=== PATIENT | female | born 1980 | race Two or more races ===

== ENCOUNTER 2022-03-21 15:34 | Emergency (ER) | payer MEDICAID, OTHER ==
[~2022-03-21] VITALS: Ht 182.9 cm; Wt 113.4 kg
--- NOTE | 2022-03-21 16:10 | NUR ---
TO ER BED 14, NAUSEA AND VOMITING SINCE THIS MORNING,HAD BEEN DRINKING ALCOHOL LAST NIGHT AND WENT TO HAVE [place] FOOD, AAOX3, BREATHING EVEN AND NON LABORED, AWAITING MD MARTINEZ
[2022-03-21] MEDS ORDERED: ONDANSETRON HCL/PF - ER 4 MG/2 ML VIAL IV ONE ×2 (16:30→17:30)
[2022-03-21] MEDS ORDERED: IV NS 0.9% 1,000 ML IV ONE ×2 (16:30→17:30)
[2022-03-21] MEDS ORDERED: ONDANSETRON HCL/PF 4 MG/2 ML VIAL ONE ×2 (16:43→17:35)
--- NOTE | 2022-03-21 16:45 | NUR ---
SALINE LOCK ESTABLISHED, BLOOD DRAWN, AND SENT TO LAB
--- NOTE | 2022-03-21 16:56 | NUR ---
URINE COLLECTED AND SENT TO LAB
[2022-03-21 17:09] LABS: BASOPHILS % (AUTO) 1.2 % (0.0-2.0); EOSINOPHILS % (AUTO) 5.9 % (0.0-6.0); HEMATOCRIT 36 % (33-45); HEMOGLOBIN 11.8 g/dL (11.5-14.8); LYMPHOCYTES # (AUTO) 0.8 K/uL (0.8-4.8); LYMPHOCYTES % (AUTO) 28.8 % (20.0-44.0); MEAN CORPUSCULAR HGB CONC 33 g/dl (31.0-36.0); MEAN CORPUSCULAR VOLUME 81 fL (82-100); MONOCYTES # (AUTO) 0.3 K/uL (0.1-1.30); MONOCYTES % (AUTO) 10.7 % (2.0-12.0); NEUTROPHILS # (AUTO) 1.6 K/uL (1.8-8.9); NEUTROPHILS % (AUTO) 53.4 % (43.0-81.0); PLATELET COUNT (AUTO) 313 K/uL (150-450); RED BLOOD CELL COUNT(AUTO) 4.46 MIL/uL (4.0-5.2); WHITE BLOOD COUNT (AUTO) 2.9 K/uL (4.3-11.0)
[2022-03-21 17:19] LABS: BILIRUBIN,URINE NEGATIVE (NEGATIVE); COLOR,URINE YELLOW (YELLOW); LEUKOCYTE ESTERASE ,URINE NEGATIVE (NEGATIVE); NITRITE, URINE NEGATIVE (NEGATIVE); PH,URINE 8.5 (5.0-8.0); PROTEIN,URINE TRACE mg/dl (NEGATIVE); UGLUCOSE NEGATIVE (NEGATIVE); UROBILINOGEN,URINE 0.2 EU/dL (0.2)
[2022-03-21] MEDS ORDERED: FAMOTIDINE/PF INJ 20 MG/2 ML VIAL IV ONE ×2 (17:30→17:36)
[2022-03-21 17:51] LABS: BACTERIA,URINE RARE /HPF (None Seen); RBC,URINE 0-2 /HPF (0-2); WBC,URINE 0-2 /HPF (0-3)
[2022-03-21 18:05] LABS: ALBUMIN 3.6 g/dL (3.4-5.0); BILIRUBIN,DIRECT 0.1 mg/dL (0.0-0.2); BILIRUBIN,TOTAL 0.2 mg/dL (0.2-1.0); CALCIUM, SERUM 8.9 mg/dL (8.5-10.1); CREATININE 0.9 mg/dL (0.6-1.3); POTASSIUM 3.7 mmol/L (3.5-5.1); TOTAL PROTEIN, SERUM 8.1 g/dL (6.4-8.2)
[2022-03-21 18:57] LABS: EOSINOPHILS % (MANUAL) 6 % (0-4); LYMPHOCYTES % (MANUAL) 34 % (16-48); MONOCYTES % (MANUAL) 5 % (0-11.0); NEUTROPHILS % (MANUAL) 55 (42-76)
[2022-03-21] MEDS ORDERED: ONDA4TAB5 PO (19:40)
[2022-03-21] MEDS ORDERED: FAMO-131 PO (19:40)
[2022-03-21 19:50] VITALS: BP 123/81
--- NOTE | 2022-03-21 19:50 | NUR ---
Patient discharged to home in stable condition. Written and verbal after care instructions given. Patient verbalizes understanding of instruction.
== END 2022-03-21 19:53 | disposition home or self-care (01) ==
LOC: ER 15:45
DX: R11.2 Nausea with vomiting, unspecified (principal); Z60.2 Problems related to living alone; Z79.899 Other long term (current) drug therapy
CPT/HCPCS: 36415; 80048; 80076; 81001; 83690; 84703; 85007; 85025; 96361; 96374; 96375; 96376; 99284; J2405 ×4; J3490; J7030 ×2

== ENCOUNTER 2022-08-25 01:27 | Emergency (ER) | payer OTHER ==
[~2022-08-25] VITALS: Ht 182.9 cm; Wt 116.1 kg
[~2022-08-25 01:27] MED LIST: FAMO-131 PO; ONDA4TAB5 PO
--- NOTE | 2022-08-25 02:01 | NUR ---
CALLED TO TRIAGE NO ANSWER
--- NOTE | 2022-08-25 02:25 | NUR ---
PATIENT BIBSELF C/O DARK BROWN SPOTTING & CRAMPING STARTED THURSDAY. 13 WEEKS . PATIENT IS A/OX 4, RR EVEN AND UNLABORED NOT SOB NOTED. VSS. WILL CONTINUE TO MONITOR.
--- NOTE | 2022-08-25 02:58 | NUR ---
US AT BEDSIDE
[2022-08-25 03:02] LABS: BASOPHILS % (AUTO) 0.5 % (0.0-2.0); EOSINOPHILS % (AUTO) 2.1 % (0.0-6.0); HEMATOCRIT 35 % (33-45); HEMOGLOBIN 11.4 g/dL (11.5-14.8); LYMPHOCYTES # (AUTO) 0.9 K/uL (0.8-4.8); LYMPHOCYTES % (AUTO) 16.9 % (20.0-44.0); MEAN CORPUSCULAR HGB CONC 32 g/dl (31.0-36.0); MEAN CORPUSCULAR VOLUME 80 fL (82-100); MONOCYTES # (AUTO) 0.7 K/uL (0.1-1.30); MONOCYTES % (AUTO) 13.6 % (2.0-12.0); NEUTROPHILS # (AUTO) 3.5 K/uL (1.8-8.9); NEUTROPHILS % (AUTO) 66.9 % (43.0-81.0); PLATELET COUNT (AUTO) 305 K/uL (150-450); RED BLOOD CELL COUNT(AUTO) 4.43 MIL/uL (4.0-5.2); WHITE BLOOD COUNT (AUTO) 5.2 K/uL (4.3-11.0)
[2022-08-25 03:05] LABS: BILIRUBIN,URINE NEGATIVE (NEGATIVE); COLOR,URINE YELLOW (YELLOW); LEUKOCYTE ESTERASE ,URINE 1+ (NEGATIVE); NITRITE, URINE NEGATIVE (NEGATIVE); PROTEIN,URINE NEGATIVE (NEGATIVE); UGLUCOSE NEGATIVE (NEGATIVE); UROBILINOGEN,URINE 0.2 EU/dL (0.2)
[2022-08-25 03:15] LABS: CALCIUM, SERUM 9.1 mg/dL (8.5-10.1); CREATININE 0.7 mg/dL (0.6-1.3); POTASSIUM 4.2 mmol/L (3.5-5.1)
[2022-08-25] MEDS ORDERED: MORPHINE SULFATE INJ 2 MG/ML DISP.SYRIN ONE (03:19)
[2022-08-25 03:21] LABS: BACTERIA,URINE Few /HPF (None Seen); RBC,URINE 0-2 /HPF (0-2)
[2022-08-25 03:22] LABS: SQUAMOUS EPITHELIAL CELL,UR Many /HPF (None Seen)
[2022-08-25] MEDS ORDERED: MORPHINE SULFATE INJ 2 MG/ML DISP.SYRIN IV ONE (03:30)
[2022-08-25] MEDS ORDERED: hydrALAZINE HCL IV 20 MG VIAL IV ONE (03:30)
--- NOTE | 2022-08-25 04:47 | NUR ---
PT IS MEDICALLY STABL FOR D/C PER MD. IV removed. Catheter intact and site benign. Pressure and 4x4 applied to site. No bleeding noted.Patient discharged to home in stable condition. Written and verbal after care instructions given. Patient verbalizes understanding of instruction.
[2022-08-25 04:59] VITALS: BP 123/64
== END 2022-08-25 04:59 | disposition home or self-care (01) ==
LOC: ER 01:29
DX: O46.91 Antepartum hemorrhage, unspecified, first trimester (principal); O34.11 Maternal care for benign tumor of corpus uteri, first trimester; D25.9 Leiomyoma of uterus, unspecified; Z3A.13 13 weeks gestation of pregnancy; Z60.2 Problems related to living alone
CPT/HCPCS: 99284; 96374; 76805; 85025; 80048; 87086; 81001; 36415; 85730; 85240; 86850; 84702; J2270